=== PATIENT | female | born 1985 | race African-American/Black ===

== ENCOUNTER 2018-05-02 07:24 | Emergency (ER) | payer MEDICAID ==
[2018-05-02 07:27] VITALS: BP 126/76; Ht 165.1 cm
== END 2018-05-02 08:00 | disposition home or self-care (01) ==
LOC: ED 07:24
DX: R11.2 Nausea with vomiting, unspecified (principal); F15.20 Other stimulant dependence, uncomplicated; F31.9 Bipolar disorder, unspecified; F20.9 Schizophrenia, unspecified; J45.909 Unspecified asthma, uncomplicated
CPT/HCPCS: Q0162